=== PATIENT | female | born 1985 | race Caucasian/White ===

== ENCOUNTER 2018-10-15 08:25 | Outpatient (CLI) | payer OTHER ==
--- NOTE | 2018-10-15 09:20 | MRI ---
MRI LUMBAR SPINE WITHOUT CONTRAST: Date: 10/15/18 HISTORY: 33-year-old female with low back pain extending down the left leg. FINDINGS: The vertebral body heights and marrow signal are fairly well maintained. There is a Schmorl's node in the anterior superior end plate of L5 vertebral body. Disc desiccation is noted at L3-4, L4-5, and L 5-S1 levels. There is a focus of increased T2 signal in the central portions of the posterior aspect of the L4-5 disc consistent with annular tear. There is a broad based disc bulge at L5-S1 level with left-sided neural foraminal narrowing and proba ble impingement of the exiting nerve root at L5-S1 level. The paraspinal musculature is normal. The c onus medullaris ends at L1 level. IMPRESSION: 1. Annular tear at L4-5 disc. 2. Broad based disc bulge at L5-S1 level with left-sided neural foraminal stenosis and probable impi ngement of the exiting nerve root. POS: [facility]
== END 2018-10-15 08:26 | disposition home or self-care (01) ==
LOC: TBSIIMAG 08:25
PROVIDERS: ATTEND Family Medicine
DX: M54.16 Radiculopathy, lumbar region (principal); M48.07 Spinal stenosis, lumbosacral region; M51.9 Unspecified thoracic, thoracolumbar and lumbosacral intervertebral disc disorder; S31.010A Laceration without foreign body of lower back and pelvis without penetration into retroperitoneum, initial encounter
CPT/HCPCS: 72148

== ENCOUNTER 2018-10-18 10:18 | Outpatient (CLI) | payer OTHER ==
--- NOTE | 2018-10-18 11:20 | MMO ---
Bilateral MAMMO Bilat Diag [facility]. CLINICAL HISTORY: Patient is 33 years old and is seen for diagnostic exam,lump or thickening, non-bloody discharge and pain in the left breast. The patient has no family history of breast cancer. The patient has no personal history of cancer. The patient has a history of right needle biopsy in 2007 - benign - ABCESS DRAINED. VIEWS: The views performed were: bilateral craniocaudal with tomosynthesis; bilateral mediolateral oblique with tomosynthesis; and bilateral mediolateral. FILMS COMPARED: The present examination has been compared to prior imaging studies performed at MAMMOGRAM FINDINGS: There are scattered fibroglandular densities. There are benign appearing calcifications in the right breast. US of left breast shows no abnormality at 8:00 position. There are no suspicious masses, suspicious calcifications, or new areas of architectural distortion. IMPRESSION: THERE IS NO MAMMOGRAPHIC EVIDENCE OF MALIGNANCY. AGE APPROPRIATE SCREENING BASED ON RISK FACTORS IS RECOMMENDED. THE RESULTS OF THIS EXAM WERE SENT TO THE PATIENT. ACR BI-RADS Category 2 - Benign finding MAMMOGRAPHY NOTE: 1. A negative mammogram report should not delay a biopsy if a dominant of clinically suspicious mass is present. 2. Approximately 10% to 15% of breast cancers are not detected by mammography. 3. Adenosis and dense breasts may obscure an underlying neoplasm.
--- NOTE | 2018-10-18 12:18 | ULT ---
LEFT BREAST ULTRASOUND: Date: 10/18/18 HISTORY: Palpable abnormality and pain at the 8 o'clock position of the left breast. FINDINGS: Correlation is made with the mammogram from same date. No abnormality is seen at the site of palpable concern/pain. IMPRESSION: BIRADS Category 2 - Benign findings. Return to age-appropriate screening based on risk factors. Furt her evaluation (including biopsy) should be based on clinical findings/suspicion. POS: OFF
== END 2018-10-18 10:19 | disposition home or self-care (01) ==
LOC: BICMAMMO 10:18
PROVIDERS: ATTEND Family Medicine
DX: N64.4 Mastodynia (principal)
CPT/HCPCS: 77066; G0279

== ENCOUNTER 2019-07-05 16:30 | Outpatient (CLI) | payer OTHER ==
--- NOTE | 2019-07-05 16:47 | RAD ---
Chest 2 views HISTORY: Pneumonia. Cough and congestion. FINDINGS: Cardiac silhouette and pulmonary vasculature are unremarkable. Mediastinum is midline. Calc ified granulomata are consistent with healed granulomatous disease. No confluent airspace consolidation, pneumothorax, or pleural fluid. IMPRESSION: No active cardiopulmonary abnormalities are demonstrated.
== END 2019-07-05 16:31 | disposition home or self-care (01) ==
LOC: BICRAD 16:30
PROVIDERS: ATTEND Family Medicine
DX: J18.0 Bronchopneumonia, unspecified organism (principal)
CPT/HCPCS: 71046

== ENCOUNTER 2019-08-03 05:48 | Emergency (ER) | payer OTHER ==
[2019-08-03] MEDS ORDERED: Lidocaine 1% (PF) 30 ML VIAL ONE (06:01)
[2019-08-03] MEDS ORDERED: Ketorolac Tromethamine 30 MG/ML VIAL ONE (06:24)
== END 2019-08-03 06:50 | disposition home or self-care (01) ==
LOC: ERS 05:48
DX: M62.838 Other muscle spasm (principal); F41.9 Anxiety disorder, unspecified; F32.9 Major depressive disorder, single episode, unspecified; Z79.899 Other long term (current) drug therapy
CPT/HCPCS: 20552; 96372; J1885; J2001

== ENCOUNTER 2020-04-28 10:07 | Outpatient (CLI) | payer OTHER ==
--- NOTE | 2020-04-28 10:52 | RAD ---
EXAM: Chest 2 views: HISTORY: Chest pain COMPARISON: None. FINDINGS: There is a normal-sized cardiomediastinal silhouette. There is no evidence of consolidation, mass, or pleural effusion. Cholecystectomy clips are seen. No acute osseous abnormality. IMPRESSION: No evidence of acute cardiopulmonary disease
== END 2020-04-28 10:08 | disposition home or self-care (01) ==
LOC: BICRAD 10:07
PROVIDERS: ATTEND Family Medicine
DX: R07.9 Chest pain, unspecified (principal)
CPT/HCPCS: 36415; 71046; 80053; 81001; 84484; 85025

== ENCOUNTER 2020-09-08 11:50 | Outpatient (CLI) | payer OTHER | END 2020-09-08 11:51 | disposition home or self-care (01) | LOC: BICRAD 11:50 | PROVIDERS: ATTEND Physician Assistant | DX: R07.89 Other chest pain (principal) | CPT/HCPCS: 71046 ==